=== PATIENT | female | born 1970 | race Caucasian/White ===

== ENCOUNTER 2022-05-03 14:17 | Inpatient (IN) | payer BC ==
[~2022-05-03] VITALS: Ht 160 cm; Wt 81.2 kg
--- NOTE | 2022-05-03 14:30 | NUR ---
ESTEFANI RA39 From Work "on/off chest pain since this morning-more constant
--- NOTE | 2022-05-03 14:31 | NUR ---
hooked to monitor
--- NOTE | 2022-05-03 14:35 | NUR ---
IV line at LAC 20g
--- NOTE | 2022-05-03 14:36 | NUR ---
blood draw sent to lab.
[2022-05-03 14:44] LABS: BASOPHILS % (AUTO) 0.1 % (0.0-2.0); HEMATOCRIT 42 % (33-45); HEMOGLOBIN 13.6 g/dL (11.5-14.8); LYMPHOCYTES # (AUTO) 0.8 K/uL (0.8-4.8); LYMPHOCYTES % (AUTO) 8.8 % (20.0-44.0); MEAN CORPUSCULAR HGB CONC 33 g/dl (31.0-36.0); MEAN CORPUSCULAR VOLUME 89 fL (82-100); MONOCYTES # (AUTO) 0.2 K/uL (0.1-1.30); NEUTROPHILS # (AUTO) 8.6 K/uL (1.8-8.9); NEUTROPHILS % (AUTO) 89.1 % (43.0-81.0); PLATELET COUNT (AUTO) 299 K/uL (150-450); WHITE BLOOD COUNT (AUTO) 9.6 K/uL (4.3-11.0)
[2022-05-03 15:17] LABS: CALCIUM, SERUM 8.8 mg/dL (8.5-10.1); CHLORIDE 95 mmol/L (98-107); CREATININE 1.3 mg/dL (0.6-1.3); POTASSIUM 3.7 mmol/L (3.5-5.1); SODIUM SERUM 130 mmol/L (136-145); UREA NITROGEN, BLOOD 20 mg/dL (7-18)
[2022-05-03 15:34] LABS: CARBON DIOXIDE 9 mmol/L (21-32); GLUCOSE 538 mg/dL (74-106)
--- NOTE | 2022-05-03 15:36 | NUR ---
CO2-9, GLUCOSE-538; DR DYE MADE AWARE.
--- NOTE | 2022-05-03 15:48 | NUR ---
covid swab done sent to lab.
--- NOTE | 2022-05-03 15:53 | NUR ---
MOVE SHEET SUBMITTED.
[2022-05-03] MEDS ORDERED: ACETAMINOPHEN 325 MG TABLET PO PRN (16:00)
[2022-05-03] MEDS ORDERED: ACETAMINOPHEN 650 MG/SUPP.RECT RC PRN (16:00)
[2022-05-03] MEDS ORDERED: IV PREMIX NS +20MEQ KCL 1 L IV PRN (16:00)
[2022-05-03] MEDS ORDERED: ZOLPIDEM TARTRATE 5 MG TABLET PO PRN (16:00)
[2022-05-03] MEDS ORDERED: ONDANSETRON HCL/PF 4 MG/2 ML VIAL IVP PRN (16:00)
[2022-05-03] MEDS: INSULIN REGULAR, HUMAN 100 UNITS in IV NS 0.9% 100 ML IV PRN ×4 (16:12→18:29)
[2022-05-03] MEDS ORDERED: PREDNISONE (16:16)
[2022-05-03] MEDS ORDERED: AMOX50SU15 PO (16:16)
[2022-05-03] MEDS ORDERED: QUET50TA PO (16:16)
[2022-05-03] MEDS ORDERED: LOSA50TA3 PO (16:16)
[2022-05-03] MEDS ORDERED: SITA100T PO (16:16)
[2022-05-03] MEDS ORDERED: METF-440 PO (16:16)
[2022-05-03] MEDS ORDERED: HYDR10SY12 GT (16:16)
[2022-05-03] MEDS ORDERED: INSU100V3 IJ (16:16)
[2022-05-03] MEDS ORDERED: HYDR50SY PO (16:16)
[2022-05-03 16:17] LABS: ABG BASE EXCESS -21.9 mmol/L; ABG PCO2 11.5 mmHg (35.0-45.0); ABG PH 7.162 (7.350-7.450); ABG PO2 126.2 mmHg (75.0-100.0); COHb 0.3 % (0.5-1.5); MetHb 0.4 % (0.0-1.5); O2Hb 97.2 % (94.0-97.0); SITE, ABG Right Radial; VENT MODE, BG R/A
--- NOTE | 2022-05-03 16:19 | NUR ---
BS 538. INSULIN DRIP INITIATED AT 8U/HR
[2022-05-03] MEDS ORDERED: SODIUM BICARBONATE SYR 50 MEQ/50 ML DISP.SYRIN ONE (16:27)
[2022-05-03] MEDS ORDERED: ALBUTEROL FS 2.5 MG/0.5 ML VIAL.NEB NEB PRN (16:30)
[2022-05-03] MEDS ORDERED: SODIUM BICARBONATE SYR 50 MEQ/50 ML DISP.SYRIN IV ONE (16:30)
--- NOTE | 2022-05-03 16:30 | NUR ---
right hand 22g IV premix NS + 20meq KCl 1L started
[2022-05-03] MEDS: BLOOD SUGAR DIAGNOSTIC 1 EACH STRIP IN SCH ×9 (16:47→23:02)
[2022-05-03 17:02] LABS: CALCIUM, SERUM 9.2 mg/dL (8.5-10.1); CREATININE 1.2 mg/dL (0.6-1.3); MAGNESIUM 2.3 mg/dL (1.8-2.4); POTASSIUM 3.8 mmol/L (3.5-5.1)
--- NOTE | 2022-05-03 17:15 | NUR ---
blood sugar 404 continue insulin drip at current rate of 8u/hr
[2022-05-03 17:53] LABS: CALCIUM, SERUM 8.8 mg/dL (8.5-10.1); CREATININE 1.2 mg/dL (0.6-1.3); MAGNESIUM 2.1 mg/dL (1.8-2.4); PHOSPHORUS 3.9 mg/dL (2.5-4.9); POTASSIUM 3.3 mmol/L (3.5-5.1)
--- NOTE | 2022-05-03 18:00 | NUR ---
lab reported blood glucose of 439. made aware.
--- NOTE | 2022-05-03 18:30 | NUR ---
BS= 319 insulin drip titrated to 4u/hr per protocol
--- NOTE | 2022-05-03 18:47 | NUR ---
Soraya lo in [facility] - 05/03/22 at 1849 by [facility] 261
--- NOTE | 2022-05-03 18:47 | NUR ---
Soraya lo in [facility] - 05/03/22 at 1848 by GODWIN GOT ICU BED 261.
--- NOTE | 2022-05-03 18:50 | NUR ---
GOT ICU BED 261.
--- NOTE | 2022-05-03 19:35 | NUR ---
BS= 309 insulin drip titrated to 4u/hr per protocol
--- NOTE | 2022-05-03 19:38 | NUR ---
RECEIVED PT AAOX4. ABLE TO MAKE NEEDS KNOWN. WITH ONGOING INSULIN INFUSION AT 3U/HR ON LEFT AC G20, WITH KCL DRIP OF 20MEQ IN 1L AT 180CC/HR ATTACHED TO IV CANNULA ON RIGHT HAND USING G22. PATIENT ATTACHED TO MONITOR. VITALS CHECKED.
--- NOTE | 2022-05-03 19:45 | NUR ---
BROADCAST OPERATIONS ENGINEER NOTE RECEIVED ER ADMISSION REPORT FROM JALIL NIELSEN. ALL PERTINENT ADMISSION INFO REGARDING PT NOTED. WILL WAIT FOR PT TO BE TRANSFERRED TO UNIT AND ADDRESS NEEDS ACCORDINGLY. WOODWIND INSTRUMENTS INSPECTOR MADE AWARE.
--- NOTE | 2022-05-03 19:46 | NUR ---
REPORT GIVEN TO JALIL ARANDA
[2022-05-03] MEDS ORDERED: IV PREMIX NS +20MEQ KCL 1 L IV ONE (19:58)
[2022-05-03 20:00] VITALS: BP 125/67
--- NOTE | 2022-05-03 20:00 | NUR ---
CASTING MACHINE SET UP OPERATOR NOTE RECEIVED PT FROM ER VIA GURNEY ACCOMPANIED BY 2 ER STAFF AND TRANSFERRED TO BED INDEPENDENTLY. PT IS A/OX4; ON ROOM AIR WITH RESPIRATIONS EVEN AND UNLABORED. COMPREHENSIVE PHYSICAL ASSESSMENT AND PATIENT CARE DONE. RECEIVED WITH ONGOING INFUSION; INSULIN DRIP RECEIVED @3U/HR RUNNING PER PROTOCOL (ALGORITHM #3) AND 1L OF NS+20MEQKCL @180MLS/HR. CALL LIGHT WITHIN REACH, SAFETY MEASURES AND ISOLATION PRECAUTION IN PLACE, WILL CONTINUE MONITOR AND ASSESS THROUGHOUT THE SHIFT. WILL CARRY OUT MD ORDERS ACCORDINGLY. ONCOLOGY CONSULTANT MADE AWARE.
--- NOTE | 2022-05-03 20:06 | NUR ---
TRANSFERRED PT TO ROOM
[2022-05-03 20:09] LABS: CALCIUM, SERUM 8.9 mg/dL (8.5-10.1); MAGNESIUM 2.1 mg/dL (1.8-2.4)
[2022-05-03] MEDS: IV NS 0.9% 1,000 ML IV PRN (20:25)
[2022-05-03 21:00] VITALS: BP 112/61
[2022-05-03] MEDS: INSULIN REGULAR, HUMAN 100 UNIT in IV NS 0.9% 99 ML IV PRN ×2 (21:02)
[2022-05-03] MEDS: hydrOXYzine PAMOATE 25 MG CAPSULE PO SCH (21:08)
[2022-05-03] MEDS: QUETIAPINE FUMARATE 25 MG TABLET PO SCH (21:08)
[2022-05-03 22:00] VITALS: BP 91/42
[2022-05-03 22:30] VITALS: BP 97/50
[2022-05-03 23:00] VITALS: BP 99/54
[2022-05-03 23:02] LABS: CALCIUM, SERUM 8.1 mg/dL (8.5-10.1); CREATININE 0.8 mg/dL (0.6-1.3)
[2022-05-03 23:12] LABS: POTASSIUM 2.8 mmol/L (3.5-5.1)
--- NOTE | 2022-05-03 23:24 | NUR ---
Received call from [facility] in Lab patient potassium level 2.8.JAIDEN AYALA notified orders received and carried out.
[2022-05-03] MEDS: POTASSIUM CL. PREMIX PERIPHER. 50 ML IV SCH (23:34)
[2022-05-04] VITALS (31 sets, daily range): BP systolic 95–145; BP diastolic 29–84
[2022-05-04] MEDS ORDERED: IV NS 0.9% 250 ML IV PRN
[2022-05-04] MEDS: BLOOD SUGAR DIAGNOSTIC 1 EACH STRIP IN SCH ×24 (00:01→23:03)
[2022-05-04] MEDS: POTASSIUM CL. PREMIX PERIPHER. 50 ML IV SCH ×5 (00:28→04:39)
[2022-05-04 03:58] LABS: BASOPHILS % (AUTO) 0.1 % (0.0-2.0); EOSINOPHILS % (AUTO) 0.4 % (0.0-6.0); HEMATOCRIT 36 % (33-45); HEMOGLOBIN 12.2 g/dL (11.5-14.8); LYMPHOCYTES # (AUTO) 3.3 K/uL (0.8-4.8); LYMPHOCYTES % (AUTO) 42.1 % (20.0-44.0); MEAN CORPUSCULAR HGB CONC 34 g/dl (31.0-36.0); MEAN CORPUSCULAR VOLUME 86 fL (82-100); MONOCYTES # (AUTO) 0.7 K/uL (0.1-1.30); MONOCYTES % (AUTO) 8.8 % (2.0-12.0); NEUTROPHILS # (AUTO) 3.8 K/uL (1.8-8.9); NEUTROPHILS % (AUTO) 48.6 % (43.0-81.0); PLATELET COUNT (AUTO) 235 K/uL (150-450); RED BLOOD CELL COUNT(AUTO) 4.21 MIL/uL (4.0-5.2); WHITE BLOOD COUNT (AUTO) 7.9 K/uL (4.3-11.0)
--- NOTE | 2022-05-04 04:00 | NUR ---
FINISHING MANAGER NOTE PATIENT REMAINED TO BE IN NO SIGNS OF ACUTE RESPIRATORY DISTRESS , SAFE ENVIRONMENT MAINTAINED FOR PT. AM PATIENT CARE ASSISTANCE RENDERED. WILL CONTINUE TO MONITOR AND REASSESS FOR ANY CHANGES THROUGHOUT THE SHIFT.
[2022-05-04] MEDS: IV NS 0.9% 1,000 ML IV PRN (06:44)
--- NOTE | 2022-05-04 07:00 | NUR ---
RN NOTES RECEIVED PT ON BED, A/Ox4, ON RA, RESPIRATION EVEN AND UNLABORED, ON TELE SR , IV SITES CDI, PT ON INSULIN DRIP AT 2 U/HR AND NS AT 100 CC/HR SR UP x3, CALL LIGHT WITHIN EASY REACH, BED LOCKED AND IN LOWEST POSITION, CONTINUE TO MONITOR .
--- NOTE | 2022-05-04 07:02 | NUR ---
DOG HAIR CLIPPER CLOSING NOTE: PATIENT REMAINS IN ROOM IN NO SIGNS OF RESPIRATORY DISTRESS,ON ROOM AIR;TOLERATING WELL SATURATING @ >93% SP02. SR ON MONITOR. SAFETY MEASURES IMPLEMENTED, BED IN LOWEST POSITION, LOCKED, SIDE RAILS UP, CALL LIGHT WITHIN REACH. ALL NEEDS AND ORDERS ADDRESSED DURING THE SHIFT. IV ACCESS MAINTAINED INTACT, SECURED AND FLUSHING WELL. STILL WITH ONGOING INSULIN DRIP @ 2UNITS/HR, INFUSING PER PROTOCOL (ALGORITHM #3) IV FLUIDS STILL RUNNING ORDERED. ALL DUE MEDS GIVEN ORDERED & SCHEDULED ; PATIENT TOLERATED WELL. 6 BAGS OF POTASSIUM GIVEN (TOTAL OF 60MEQ) PATIENT KEPT CLEAN AND COMFORTABLE WITHIN THE SHIFT. PATIENT ENDORSED TO INCOMING SHIFT RN WITH STABLE VITAL SIGN AND FOR CONTINUITY OF CARE.
[2022-05-04] MEDS: PANTOPRAZOLE 40 MG VIAL IV SCH (08:19)
[2022-05-04] MEDS: LOSARTAN POTASSIUM 50 MG TABLET PO SCH (08:20)
[2022-05-04] MEDS: AMOX/CLAVULANATE 250 MG TABLET PO SCH ×3 (08:22→16:54)
[2022-05-04 08:27] LABS: BASOPHILS % (AUTO) 0.2 % (0.0-2.0); EOSINOPHILS % (AUTO) 1.1 % (0.0-6.0); HEMATOCRIT 39 % (33-45); LYMPHOCYTES # (AUTO) 2.9 K/uL (0.8-4.8); LYMPHOCYTES % (AUTO) 40.2 % (20.0-44.0); MEAN CORPUSCULAR HGB CONC 33 g/dl (31.0-36.0); MEAN CORPUSCULAR VOLUME 87 fL (82-100); MONOCYTES # (AUTO) 0.6 K/uL (0.1-1.30); MONOCYTES % (AUTO) 8.4 % (2.0-12.0); NEUTROPHILS # (AUTO) 3.7 K/uL (1.8-8.9); NEUTROPHILS % (AUTO) 50.1 % (43.0-81.0); PLATELET COUNT (AUTO) 244 K/uL (150-450); RED BLOOD CELL COUNT(AUTO) 4.51 MIL/uL (4.0-5.2); WHITE BLOOD COUNT (AUTO) 7.3 K/uL (4.3-11.0)
[2022-05-04 08:38] LABS: CALCIUM, SERUM 8.5 mg/dL (8.5-10.1); CREATININE 0.9 mg/dL (0.6-1.3); POTASSIUM 2.9 mmol/L (3.5-5.1)
[2022-05-04] MEDS: IV D5/0.45 NACL 1,000 ML IV SCH ×2 (08:49→19:32)
[2022-05-04] MEDS ORDERED: LINAGLIPTIN 5 MG TABLET PO SCH (09:00)
[2022-05-04] MEDS ORDERED: AMOX/CLAVULANATE 500 MG TABLET PO SCH (09:00)
[2022-05-04] MEDS ORDERED: POTASSIUM CHLORIDE 20 MEQ TAB.PRT.SR PO ONE ×2 (09:30→17:00)
[2022-05-04 10:16] LABS: MAGNESIUM 1.9 mg/dL (1.8-2.4); PHOSPHORUS 1.1 mg/dL (2.5-4.9)
[2022-05-04 10:28] LABS: THYROID STIMULATING HORMONE 1.116 uIU/mL (0.358-3.74)
--- NOTE | 2022-05-04 12:30 | NUR ---
RN NOTES DR BEEBE NOTIFIED REGARDING BMP RESULTS , NO NEW ORDER GIVEN
[2022-05-04] MEDS: POTASSIUM PHOSPHATE MM 7.5 MMOL in IV NS 0.9% 100 ML IV SCH ×2 (12:33→15:27)
[2022-05-04 12:45] LABS: CALCIUM, SERUM 8.4 mg/dL (8.5-10.1); CREATININE 0.9 mg/dL (0.6-1.3)
[2022-05-04] MEDS ORDERED: POTASSIUM PHOSPHATE MM 15 MMOL in IV NS 0.9% 250 ML IV ONE (14:00)
[2022-05-04 15:44] LABS: CALCIUM, SERUM 8.5 mg/dL (8.5-10.1); CREATININE 0.9 mg/dL (0.6-1.3); POTASSIUM 3.3 mmol/L (3.5-5.1)
--- NOTE | 2022-05-04 16:27 | NUR ---
RN NOTES DR BEEBE NOTIFIED REGARDING BMP RESULTS , NO NEW ORDER GIVEN , CONTINUE INSULIN DRIP PROTOCOL.
--- NOTE | 2022-05-04 18:13 | NUR ---
RN NOTES PT ON INSULIN DRIP , CONTINUE ACCU CHECK Q1 , PER MD ORDER , D51/2 NS AT 100CC/HR RUNNING , INSULIN DRIP AT 5 U/HR AT THIS TIME, NO SIGNIFICANT CHANGES NOTED ON THIS SHIFT , WILL ENDORSE TO CUTTING AND CREASING PRESS OPERATOR NURSE FOR CONTINUITY OF CARE .
--- NOTE | 2022-05-04 19:00 | NUR ---
RN NOTES RECEIVED PT ON BED, A/Ox4, ON RA, RESPIRATION EVEN AND UNLABORED, TELE MONITOR READING SR , IV SITES R HAND #22 AND RFA #20, PT ON INSULIN DRIP AT 5 U/HR AND D5 1/2NS @100 ML/HR. SIDE RAILS UP x3, CALL LIGHT WITHIN EASY REACH, BED LOCKED AND IN LOWEST POSITION, CONTINUE TO MONITOR .
[2022-05-04 20:37] LABS: CALCIUM, SERUM 8.4 mg/dL (8.5-10.1); CREATININE 0.8 mg/dL (0.6-1.3); POTASSIUM 3.1 mmol/L (3.5-5.1)
[2022-05-04] MEDS: INSULIN REGULAR, HUMAN 100 UNIT in IV NS 0.9% 99 ML IV PRN ×2 (21:02)
[2022-05-04] MEDS: hydrOXYzine PAMOATE 25 MG CAPSULE PO SCH (22:02)
[2022-05-04] MEDS: QUETIAPINE FUMARATE 25 MG TABLET PO SCH (22:02)
[2022-05-05] VITALS (12 sets, daily range): BP systolic 95–139; BP diastolic 50–89
[2022-05-05] MEDS: BLOOD SUGAR DIAGNOSTIC 1 EACH STRIP IN SCH ×3 (00:09→02:02)
[2022-05-05 00:53] LABS: CALCIUM, SERUM 8.2 mg/dL (8.5-10.1); CREATININE 0.8 mg/dL (0.6-1.3); POTASSIUM 2.9 mmol/L (3.5-5.1)
--- NOTE | 2022-05-05 02:00 | NUR ---
RN NOTE BS 192. PER DR. HWANG STOP INSULIN DRIP AND ACHS SLIDING SCALE MODERATE
[2022-05-05] MEDS ORDERED: *INSULIN REGULAR(HUMULIN R)HUM 100 UNIT/ML VIAL SQ PRN (02:30)
[2022-05-05] MEDS ORDERED: DEXTROSE 50%-WATER 50 ML DISP.SYRIN IV PRN (02:30)
[2022-05-05] MEDS: IV D5/0.45 NACL 1,000 ML IV SCH (04:48)
[2022-05-05 05:02] LABS: BASOPHILS % (AUTO) 0.2 % (0.0-2.0); HEMATOCRIT 36 % (33-45); HEMOGLOBIN 12.1 g/dL (11.5-14.8); LYMPHOCYTES # (AUTO) 2.5 K/uL (0.8-4.8); LYMPHOCYTES % (AUTO) 47.4 % (20.0-44.0); MEAN CORPUSCULAR HGB CONC 34 g/dl (31.0-36.0); MEAN CORPUSCULAR VOLUME 86 fL (82-100); MONOCYTES # (AUTO) 0.4 K/uL (0.1-1.30); MONOCYTES % (AUTO) 7.2 % (2.0-12.0); NEUTROPHILS # (AUTO) 2.3 K/uL (1.8-8.9); NEUTROPHILS % (AUTO) 43.2 % (43.0-81.0); PLATELET COUNT (AUTO) 209 K/uL (150-450); RED BLOOD CELL COUNT(AUTO) 4.18 MIL/uL (4.0-5.2); WHITE BLOOD COUNT (AUTO) 5.3 K/uL (4.3-11.0)
[2022-05-05 05:31] LABS: ALBUMIN 2.6 g/dL (3.4-5.0); BILIRUBIN,TOTAL 0.4 mg/dL (0.2-1.0); CALCIUM, SERUM 8.1 mg/dL (8.5-10.1); CREATININE 0.6 mg/dL (0.6-1.3); MAGNESIUM 1.7 mg/dL (1.8-2.4); PHOSPHORUS 2.6 mg/dL (2.5-4.9); TOTAL PROTEIN, SERUM 5.2 g/dL (6.4-8.2)
--- NOTE | 2022-05-05 05:48 | NUR ---
RN NOTE ANION GAP BACK UP TO 16, PER CHARGE NURSE WAIT TO SEE 0800 LAB RESULTS
--- NOTE | 2022-05-05 06:49 | NUR ---
RN CLOSING NOTE PT ASLEEP IN BED, ON RA, TOLERATING WELL, NO S/S OF ACUTE RESP DISTRESS, TELE MONITOR READING SR, IV ACCESS ON RHAND, AND RFA, RUNNING D51/2NS@100ML/HR, WILL ENDORSE TO MORNING SHIFT FOR CONTINUE OF CARE.
--- NOTE | 2022-05-05 07:05 | NUR ---
ICU/RN PT RECEIVED IN BED, AWAKE, A&OX4. PT ON RA TOLERATING WELL SAT 96% ON BEDSIDE MONITOR. RIGHT HAND 22G AND RIGHT FA 20G IN PLACE RUNNING D51/2NS AT 100ML/HR. INSULIN DRIP D/C AT 0200 BY ELECTROTYPER RN PER LUCY HWANG ORDER. BED LOCKED AND IN LOWEST POSITION, CALL LIGHT WITHIN REACH, 2 SIDE RAILS UP.
[2022-05-05] MEDS ORDERED: BLOOD SUGAR DIAGNOSTIC 1 EACH STRIP VI SCH (07:30)
[2022-05-05] MEDS: PANTOPRAZOLE 40 MG VIAL IV SCH (08:05)
[2022-05-05] MEDS: AMOX/CLAVULANATE 250 MG TABLET PO SCH (08:05)
[2022-05-05] MEDS: INSULIN REGULAR, HUMAN 100 UNIT/ML 3 ML VIAL SQ PRN ×2 (08:08→11:15)
[2022-05-05] MEDS: LOSARTAN POTASSIUM 50 MG TABLET PO SCH (08:08)
[2022-05-05] MEDS: POTASSIUM CHLORIDE 20 MEQ TAB.PRT.SR PO SCH ×3 (08:52→10:50)
[2022-05-05] MEDS ORDERED: MAGNESIUM OXIDE 400 MG TABLET PO ONE (09:00)
[2022-05-05] MEDS ORDERED: Magnesium 1GM/D5W 100ML PREMIX 100 ML IV SCH (09:00)
--- NOTE | 2022-05-05 09:00 | NUR ---
MATH INSTRUCTOR PT VERBALIZES NEED TO GO HOME TODAY. PT EDUCATED ON THE NEED TO REMAIN IN THE ICU UNTIL MEDICALLY CLEAR FOR HER SAFETY AND HEALTH. PT VERBALIZES UNDERSTANDING BUT STATES SHE HAS PETS AT HOME SHE NEEDS TO CARE FOR. DR. BEEBE AT BEDSIDE.
[2022-05-05 10:00] LABS: CALCIUM, SERUM 8.4 mg/dL (8.5-10.1); CREATININE 0.9 mg/dL (0.6-1.3); POTASSIUM 2.9 mmol/L (3.5-5.1)
[2022-05-05] MEDS ORDERED: IV NS 0.9% 1,000 ML IV PRN (10:30)
[2022-05-05] MEDS ORDERED: POTASSIUM CHLORIDE 20 MEQ TAB.PRT.SR PO ONE ×2 (10:30→12:00)
--- NOTE | 2022-05-05 10:42 | NUR ---
ICU/RN DR. BEEBE VERBAL ORDER FOR A TOTAL OF 80MEQ OF POTASSIUM REPLACEMENT PO.
--- NOTE | 2022-05-05 11:10 | NUR ---
ICU/RN PT EDUCATED ON LATEST LAB AND NEED TO RESUME INSULIN DRIP. PT REFUSES, VERBALIZES SHE HAS TO LEAVE A. DR. BEEBE NOTIFIED. RN WILL GIVE PT INSULIN PRIOR TO DISCHARGED BASED ON LAST SUGAR CHECK OF 396. POTASSIUM REPLACED WITH 60MEQ AT THIS TIME, PO.
--- NOTE | 2022-05-05 11:28 | NUR ---
ICU/RN PT LEFT AMA, AMA FORM SIGNED AND BELONGINGS FORM SIGNED. DR. BEEBE NOTIFIED. BOTH IV LINES REMOVED.
[2022-05-06] MEDS ORDERED: PANTOPRAZOLE 40 MG TABLET.DR PO SCH (07:30)
== END 2022-05-05 11:25 | disposition left against medical advice (07) | DRG 638 ==
LOC: ER 14:32 → ICU 19:46
PROVIDERS: ADMIT Nurse Practitioner Acute Care; ATTEND Internal Medicine
DX: E11.10 Type 2 diabetes mellitus with ketoacidosis without coma (principal); E87.1 Hypo-osmolality and hyponatremia; J45.909 Unspecified asthma, uncomplicated; Z20.822 Contact with and (suspected) exposure to COVID-19; I10 Essential (primary) hypertension; Z79.4 Long term (current) use of insulin; Z79.84 Long term (current) use of oral hypoglycemic drugs; Z79.899 Other long term (current) drug therapy; E86.1 Hypovolemia; R79.89 Other specified abnormal findings of blood chemistry; E66.9 Obesity, unspecified; Z68.33 Body mass index [BMI] 33.0-33.9, adult; E87.6 Hypokalemia; F41.9 Anxiety disorder, unspecified; R07.9 Chest pain, unspecified
CPT/HCPCS: 36415; 36600; 71045-TC; 80048-TC; 80053-TC; 82803-TC; 82962-TC; 83735-TC; 83880; 84100-TC; 84439-TC; 84443-TC; 84484-TC; 85025-TC; 85378-TC; 87081-TC; 93307-TC; 94799-TC; C9113; C9803; G0378; J1815; J3480; J3490; J7030; J7050; Q0177